=== PATIENT | male | born 1955 | race Caucasian/White ===

== ENCOUNTER 2018-11-17 05:59 | Day surgery (SDC) | payer OTHER ==
[~2018-11-17] VITALS: Ht 182.9 cm; Wt 117.0 kg
[2018-11-17 07:11] VITALS: Ht 182.9 cm; Wt 117.0 kg
[2018-11-17] MEDS ORDERED: LEVOTHYROXINE (07:31)
[2018-11-17] MEDS ORDERED: CARVEDILOL (07:31)
[2018-11-17] MEDS ORDERED: HYDRALAZINE (07:31)
[2018-11-17] MEDS ORDERED: ENTRESTO (07:31)
[2018-11-17] MEDS ORDERED: ASPIRIN (07:31)
--- NOTE | 2018-11-17 07:34 | PREAC ---
Date/Time of Note Date/Time of Note DATE: 11/17/18 TIME: 07:33 Anesthesia Eval and Record Evaluation Time Pre-Procedure Interview DATE: 11/17/18 TIME: 07:33 Age 63 Sex male NPO: 8 hrs Preoperative diagnosis rectal bleeding Planned procedure colonoscopy Past Medical History Past Medical History: Includes Cardio: HTN, CAD, CHF Surgery & Anesthesia Issues No known issue Meds Anticoagulation: No Beta Leora within 24 hr: Yes Reported Medications [Aspirin] No Conflict Check 11/17/18 [Levothyroxine] No Conflict Check 11/17/18 [Hydralazine] No Conflict Check 11/17/18 [Carvedilol] No Conflict Check 11/17/18 [Entresto] No Conflict Check 11/17/18 Meds reviewed: Yes Allergies Allergies Reviewed: Yes Labs/Studies Labs Reviewed: Reviewed by anesthesiologist test: N/A Studies: ECG, CXR, 2D Echo Pre-procedure Exam Airway: Adequate mouth opening, Adequate thyromental dist Mallampati: Mallampati III Teeth: Normal Lung: Normal Heart: Normal ASA Physical Status ASA physical status: 3 Emergency: None Planned Anesthetic General/MAC: MAC Planned Pain Management Parenteral pain med Pre-operative Attestations Prior to commencing anesthesia and surgery, the patient was re-evaluated, there was verification of: *The patient's identity *The results of appropriate recent lab work and preoperative vital signs *The above evaluation not changing prior to induction *Anesthetic plan, risk benefits, alternative and complications discussed with patient/family; questions answered; patient/family understands, accepts and wishes to proceed. DAVID LOPEZ MD Nov 17, 2018 07:34
[2018-11-17 07:55] VITALS: BP 134/64; PULSE 75; RESP 16
[2018-11-17] MEDS ORDERED: ETOMIDATE 20 MG INJ ONE (08:19)
[2018-11-17 09:16] VITALS: BP 133/67; PULSE 72; RESP 20
--- NOTE | 2018-11-18 07:23 | PAC ---
Date/Time of Note Date/Time of Note DATE: 11/18/18 TIME: 07:23 Post-Anesthesia Notes Post-Anesthesia Note Last documented vital signs Vital Signs Date Temp Pulse Resp B/P (MAP) Pulse Ox O2 O2 Flow FiO2 Time Delivery Rate 11/17/18 72 20 133/67 98 Room Air 09:16 (89) 11/17/18 98.3 07:55 Activity: WNL Respiratory function: WNL Cardiovascular function: WNL Mental status: Baseline Pain reasonably controlled: Yes Hydration appropriate: Yes Nausea/Vomiting absent: Yes DAVID LOPEZ MD Nov 18, 2018 07:23
== END 2018-11-17 11:39 | disposition home or self-care (01) ==
LOC: GIL 05:59
PROVIDERS: ATTEND Internal Medicine Gastroenterology
DX: K64.8 Other hemorrhoids (principal); D12.6 Benign neoplasm of colon, unspecified
CPT/HCPCS: 45380; 88305; Z7610

== ENCOUNTER 2019-01-13 07:08 | Day surgery (SDC) | payer OTHER ==
[2019-01-13] VITALS (25 sets, daily range): BP systolic 114–157; BP diastolic 61–79; PULSE 66–78; RESP 8–18; Ht 182.9 cm; Wt 114.2 kg
[~2019-01-13] VITALS: Ht 182.9 cm; Wt 114.2 kg
[~2019-01-13 07:08] MED LIST: ASPIRIN; CARVEDILOL; ENTRESTO; HYDRALAZINE; LEVOTHYROXINE
[2019-01-13] MEDS ORDERED: SOD CHLORIDE 0.45% 1,000 ML IV SCH (08:00)
[2019-01-13] MEDS ORDERED: FAMOTIDINE 20 MG TAB PO SCH (08:00)
[2019-01-13] MEDS ORDERED: DIAZEPAM 5 MG TAB PO SCH (08:00)
[2019-01-13] MEDS ORDERED: DIPHENHYDRAMINE 50 MG CAP PO SCH (08:00)
[2019-01-13] MEDS ORDERED: SACU1TAB4 PO (08:11)
[2019-01-13] MEDS ORDERED: CARV25TA79 PO (08:11)
[2019-01-13] MEDS ORDERED: HYDR-3671 PO (08:12)
[2019-01-13] MEDS ORDERED: ASPI81TA52 PO (08:13)
[2019-01-13] MEDS ORDERED: LEVO50TA71 PO (08:13)
[2019-01-13] MEDS ORDERED: ATOR40TA68 PO (08:14)
[2019-01-13] MEDS ORDERED: LIDOCAINE 1% (MDV) 20 ML INJ ONE (08:17)
[2019-01-13] MEDS ORDERED: HEPARIN 1000 UNITS/ML 10 ML INJ ONE (08:17)
[2019-01-13] MEDS ORDERED: VERAPAMIL 5 MG INJ ONE (08:18)
[2019-01-13] MEDS ORDERED: MIDAZOLAM 1 MG/ML 2 ML INJ ONE (08:18)
[2019-01-13] MEDS ORDERED: NITROGLYCERIN (IC) 100 MCG/ML INJ ONE (08:18)
[2019-01-13] MEDS ORDERED: FENTAnyl 50 MCG/ML VIAL ONE (08:19)
[2019-01-13] MEDS ORDERED: SOD CHLORIDE 0.9% 1,000 ML IV SCH (10:59)
[2019-01-13] MEDS ORDERED: ONDANSETRON 4 MG INJ IV PRN (11:00)
[2019-01-13] MEDS ORDERED: ACETAMINOPHEN 325 MG TAB PO PRN (11:00)
[2019-01-13] MEDS ORDERED: morphine 2 MG INJ IV PRN (11:00)
[2019-01-13] MEDS ORDERED: AL HYDROX/MG HYDROX/SIMETH 30 ML CUP PO PRN (11:00)
--- NOTE | 2019-01-13 11:04 | SIPON ---
Date/Time of Note Date/Time of Note DATE: 01/13/19 TIME: 11:03 Operative Report Preoperative Diagnosis 1. 2.Cardiomyopathy Postoperative Diagnosis 1. 2.obstructive cad Operation/Procedure Performed 1.[facility] 2.[facility] Surgeon see signature line assistant store manager trainee 1.[facility] Anesthesia: moderate sedation Estimated blood loss: minimal Transfusion Required none Specimen none Grafts/Implants none Complications none ROSALEE HURST January 13, 2019 11:04
--- NOTE | 2019-01-13 15:52 | CARRPT ---
DATE OF PROCEDURE: 01/13/2019 TYPE OF PROCEDURES: 1. Left heart catheterization. 2. Coronary angiography. 3. Measurement of left ventricular end diastolic pressure. 4. Right heart catheterization. ATTENDING PHYSICIAN: Rosalee Cantrell MD REFERRING PHYSICIAN: Prudencio Bettencourt MD INDICATION: Aortic stenosis, cardiomyopathy, decreased left ventricular ejection, assess for obstruc tive lesions. TYPE OF ANESTHESIA: Conscious and local. BRIEF HISTORY: Mr. Cortes is a 63-year-old male with history of hypertension, dyslipidemia, cardiomy opathy with severe depressed left ventricular ejection, who was incidentally found to have possible a ortic stenosis now referred for left heart catheterization to assess for the possibility of significa nt obstructive coronary artery lending to shortness of breath and decreased EF and ____ lending to sh ortness of breath. DESCRIPTION OF PROCEDURE: After informed consent was obtained, the patient was brought to the [facility] cardiac catheterization lab, where his initially right radial artery area was prepped and draped in usual sterile fashion. A 2% Lidocaine was infiltrated into right radial artery area in order to achieve adequate anesthesia. Using the modified Seldinger technique, the radial ar shay was cannulated and a 6-Welsh arterial sheath was placed. A 6-Welsh JL3.5 catheter was used to cannulate right main coronary ostium. With contrast injection, multiple views of the left coronary arterial system were obtained. JL3.5 was removed a guidewire and a JR4 was used to cannulate the rig ht coronary arterial ostium. With contrast injection, multiple views of the right coronary arterial system were obtained. JR4 was then used with straight wire to cross the patient's aortic valve. JR was placed in the aorta in the ventricle. This was exchanged for a dual-lumen [employer] catheter and simultaneous AO and LV pressures were obtained to obtain aortic gradient. The [employer] catheter was then pulled back across the aortic valve to further assess for gradient and removed. Subsequently at this time, it was found that later ____ of the aortic valve. At this time, the groin had been pre-p repped and so using the modified Seldinger technique, the right femoral vein was cannulated and a 7-F rench venous sheath was placed. Through this, 7-Welsh [place] catheter was passed up the IVC into the RA, RV, PA and finally pulmonary capillary wedge positions with pressures obtained in each subse quent chamber. Cardiac output was determined by thermal dilution method and the [place] catheter w as removed. At this time, aortic valve areas were obtained. The patient's radial sheath was removed . TR band was applied. The patient's venous sheath was removed. Manual pressure was applied. Opti mal hemostasis was achieved. There were no noted complications. FINDINGS: 1. Right heart catheterization: Right atrial pressure 16, right ventricular pressure of 51/15, pulm onary capillary wedge of 34, cardiac output of 6.0, cardiac index of 2.56, aortic valve area of 1.1 w ith a mean gradient of 31.4, peak gradient of 25. 2. Left heart catheterization: Left main is 4 mm, no significant focal stenosis. Circumflex proxim ally is a 3.5 mm vessel, has an ostial 20% to 30% stenosis in the midportion of circumflex vessel. T here is an eccentric-appearing stenosis that in single image can be seen to be approximately 70% esse ntially. Distal branching obtuse marginal are 2 mm and 2.5 mm with the more superior branch having t ubular 40% stenosis. There is a mid branching obtuse marginal, 2 mm, no significant focal stenosis a nd a ramus branch, sub 2 mm vessel, short territory with 20% to 30% stenosis. LAD proximally is a 3. 5 mm vessel in its midportion, just before bifurcation with diagonal has approximately 20% to 30% fozia nosis. Remainder of the LAD is free from significant focal stenosis and just around the apex. There is diagonal that branches midway through the vessel, 2.5 mm, its mid body 30% to 40% stenosis. The right coronary artery is a very tortuous vessel proximally 3.5 mm and its proximal portion shortly af ter takeoff has approximately 50% to 60% stenosis. Remainder of the right coronary thereafter is chito e from significant focal stenosis, dominant vessel, gives off a 3 mm PDA and 2.5 mm posterolateral br anch, each with no significant focal stenosis. Left ventricular end diastolic pressure of 42. TOTAL FLUOROSCOPY TIME: 30.3 minutes. TOTAL CONTRAST: 50 mL. IMPRESSION: 1. Single vessel obstructive coronary artery disease involving eccentric lesion in the patient's cir cumflex vessel and intermediate lesion in the patient's proximal right coronary artery vessel of uncl ear significance. 2. Elevated right and left heart filling pressures. 3. Normal cardiac output. 4. Moderate to severe aortic stenosis by gradient and valve area. RECOMMENDATIONS: In light of procedure and findings at this time: 1. The patient will be turned to outpatient station inspector for decision upon valve replacement surgery and if not and the patient does have symptoms then should consider PTCA to the patient's mid circumf jomar and possibly FFR of the patient's right coronary artery lesion to assess its significance and nee d for revascularization or not. 2. The patient should undergo diuresis. 3. The patient will be readmitted to the same day surgery center with probable discharge later this afternoon. Dictated By: ROSALEE ROE/RINA Conf#: [id number] DID#: [id number]
== END 2019-01-13 18:25 | disposition home or self-care (01) ==
LOC: SDS 07:08
PROVIDERS: ATTEND Internal Medicine
DX: I25.10 Atherosclerotic heart disease of native coronary artery without angina pectoris (principal); I35.0 Nonrheumatic aortic (valve) stenosis; I10 Essential (primary) hypertension; E78.5 Hyperlipidemia, unspecified; I42.9 Cardiomyopathy, unspecified
CPT/HCPCS: 71045; 80048; 80061; 85025; 85610; 85730; 93005; 93460; C1769; C1887; C1894; J1644; J2250; J3010; Z7610

== ENCOUNTER → 2019-05-06 | Outpatient (CLI) | payer OTHER ==
[~2019-05-06] MED LIST changes: +ASPI81TA52 PO; -ASPIRIN; +ATOR40TA68 PO; +CARV25TA79 PO; -CARVEDILOL; -ENTRESTO; +HYDR-3671 PO; -HYDRALAZINE; +LEVO50TA71 PO; -LEVOTHYROXINE; +SACU1TAB4 PO
== END | disposition home or self-care (01) ==
LOC: EKG 08:53
PROVIDERS: ATTEND Internal Medicine
DX: I10 Essential (primary) hypertension (principal); I06.0 Rheumatic aortic stenosis
CPT/HCPCS: 93306